=== PATIENT | male | born 1950 | race Caucasian/White ===

== ENCOUNTER → 2017-07-21 12:59 | Outpatient (CLI) | payer MEDICARE, OTHER ==
[~2017-07-21 12:59] MED LIST: BENADRYL25 MG PO; CINNAMON500 MG PO; COUMADIN1 MG PO; COUMADIN5 MG PO; FLAGYL500 MG PO; FLOMAX0.4 MG PO; FUROSEMIDE20 MG PO; GARLIC PO; KEFLEX250 MG PO; MAGNESIUM GLUC500 M1 PO; MELATONIN10 M1 PO; MULTIPLE VITAMI1 TA1 PO; OSTEO BI-FLEX1 EAC1 PO; PRAVACHOL40 MG PO; PRINIVIL20 MG PO; PROBIOTIC1 EAC1 PO; PROSCAR5 MG PO
[2017-08-23 13:35] VITALS: BMI 35.8
== END | disposition home or self-care (01) ==
LOC: D.US 12:59
DX: N18.3 Chronic kidney disease, stage 3 (moderate) (principal)

== ENCOUNTER → 2017-08-04 16:31 | Outpatient (CLI) | payer MEDICARE, OTHER ==
[2017-08-23 13:35] VITALS: BMI 35.8
== END | disposition home or self-care (01) ==
LOC: D.LAB 16:31
DX: R97.20 Elevated prostate specific antigen [PSA] (principal); N39.0 Urinary tract infection, site not specified; R31.9 Hematuria, unspecified

== ENCOUNTER → 2017-08-14 10:39 | Outpatient (CLI) | payer MEDICARE, OTHER ==
[2017-08-14 11:28] LABS: CREATININE - SERUM 1.7 mg/dL (0.6-1.3)
== END | disposition home or self-care (01) ==
LOC: D.CT 10:39
PROVIDERS: Urology
DX: R31.9 Hematuria, unspecified (principal)

== ENCOUNTER 2017-08-21 05:24 | Day surgery (SDC) | payer MEDICARE, OTHER ==
[2017-08-19 11:25] LABS: APTT 28.9 SECONDS (22.8-39.4); INR 1.23 (0.85-1.17); PROTIME 15.1 SECONDS (11.6-15.0)
[2017-08-19 11:30] LABS: ANION GAP 14.2 mmol/L (8-16); CALCIUM 8.9 mg/dL (8.5-10.1); CARBON DIOXIDE 23.4 mmol/L (21.0-32.0); CREATININE - SERUM 1.8 mg/dL (0.6-1.3); HEMOGLOBIN 12.5 g/dL (13.5-17.5); MCH 28.9 pg (26.0-34.0); MCHC 32.9 g/dL (31.0-37.0); MCV 87.8 fL (80.0-100.0); MEAN PLATELET VOLUME 11.9 fL (7.4-10.4); POTASSIUM - SERUM 4.6 mmol/L (3.5-5.1); RBC 4.33 10x6/uL (4.20-6.10); RDW 14.6 % (11.5-14.5); WBC 6.7 10x3/uL (4.8-10.8)
[~2017-08-21] VITALS: Ht 175.3 cm; Wt 113.4 kg
--- NOTE | ~2017-08-21 | OP ---
PATIENT NAME: ROSY LINDSAY MEDICAL RECORD: [id number] :48 LOCATION:[facility] ADMISSION DATE: SURGEON: JARED HOLBROOK MD DATE OF OPERATION: 08/21/2017 SURGEON: Jared Holbrook MD ANESTHESIA: MAC by Jared Teague MD DIAGNOSES: Microhematuria, elevated PSA 5.69 (08/05/2017). PROCEDURE: Cystoscopy and transrectal ultrasound and prostate biopsy. 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 Trabeculated bladder, single ureteral orifices bilaterally. No bladder tumors. On transrectal ultrasound, 60 gram prostate with no hypoechoic areas. SPECIMENS: Prostate biopsy cores. BLOOD LOSS: Minimal. CLINICAL HISTORY: This is a 67-year-old male with a chief complaint of an elevated PSA and obstructive BPH symptoms. He had a PSA of 8 and a prostate biopsy by Dr. Mondragon in 1997. The biopsy at that time was benign. Since then, the PSA has been up to 25, but that was when he had a urinary tract infection. His last PSA was 5.6 in 2014. At that time, he saw Dr. Hare. We repeated his PSA and it was 5.69 in July 2017. He comes today to have a repeat prostate biopsy. On digital rectal examination, the prostate is enlarged, about 60 grams, but smooth. He does not have a family history of prostate cancer. He was offered an MRI ultrasound fusion biopsy to be done in [place], but he preferred to have this procedure done here. He is not allergic to any medication. He was given ampicillin and sulbactam 3 grams IV telephone clerks supervisor to the OR. DESCRIPTION OF PROCEDURE: The patient was given IV sedation. He was then placed into dorsal lithotomy position and prepped and draped. A 21-Vietnamese cystoscope with 30-degree lens was used for visualization. Penile urethra was normal with no obstruction. Prostatic urethra shows trilobar hyperplasia with an obstructive prostatic urethra. The urethra was very vascular. Going into the bladder, no bladder tumors were seen. The bladder was then emptied through the cystoscope and the scope was removed. We then proceeded with the transrectal ultrasound and prostate biopsy. The ultrasound probe was placed in the rectum and prostate size measurements were obtained. We estimated the prostate size at 60 grams. Sextant biopsies were then performed with at least 3 cores from each of the sextant. Once all the samples were obtained and sent to pathology in formalin, the procedure was terminated. The patient will be going home today. I will see him in followup next week to review the pathology results with him. TRANSINT:[id number] Voice Confirmation ID: [id number] DOCUMENT ID: [id number] OPERATIVE REPORT [id number] ROSY LINDSAY, JARED Miller MD at 1356 CC: [id number] DICTATION DATE: 08/21/17830 FAMILY ASSISTANT: 08/21/17 1030 [facility] 08/21/17 [id number] [place] [address]
[2017-08-21] MEDS ORDERED: FLOMAX0.4 MG PO (06:22)
[2017-08-21] MEDS ORDERED: COUMADIN1 MG PO (06:22)
[2017-08-21] MEDS ORDERED: PRINIVIL20 MG PO (06:22)
[2017-08-21] MEDS ORDERED: FUROSEMIDE20 MG PO (06:23)
[2017-08-21] MEDS ORDERED: COUMADIN5 MG PO (06:23)
[2017-08-21] MEDS ORDERED: PRAVACHOL40 MG PO (06:23)
[2017-08-21] MEDS ORDERED: CINNAMON500 MG PO (06:24)
[2017-08-21] MEDS ORDERED: MELATONIN10 M1 PO (06:24)
[2017-08-21] MEDS ORDERED: MULTIPLE VITAMI1 TA1 PO (06:24)
[2017-08-21] MEDS ORDERED: MAGNESIUM GLUC500 M1 PO (06:24)
[2017-08-21] MEDS ORDERED: OSTEO BI-FLEX1 EAC1 PO (06:25)
[2017-08-21] MEDS ORDERED: PROBIOTIC1 EAC1 PO (06:25)
[2017-08-21 06:27] VITALS: BP 153/89; Ht 175.3 cm; Wt 113.4 kg
[2017-08-22] MEDS ORDERED: GARLIC PO (21:21)
[2017-08-22] MEDS ORDERED: BENADRYL25 MG PO (21:22)
== END 2017-08-21 09:15 | disposition home or self-care (01) ==
LOC: D.OPS 05:24 → D.PAN 07:30 → D.OPS 09:15
PROVIDERS: Anesthesiology
DX: N40.1 Benign prostatic hyperplasia with lower urinary tract symptoms (principal); N32.89 Other specified disorders of bladder; Z01.812 Encounter for preprocedural laboratory examination

== ENCOUNTER 2017-08-22 09:48 | Inpatient (IN) | payer MEDICARE, OTHER ==
[~2017-08-22] VITALS: Ht 177.8 cm; Wt 113.2 kg
--- NOTE | ~2017-08-22 | EC ---
PATIENT:ROSY LINDSAY DATE OF SERVICE: 08/22/17 SEX: M MEDICAL RECORD: [id number] DATE OF : 48 LOCATION:D[id number] AGE OF PATIENT: 67 ADMISSION DATE: 08/22/17 REFERRING PHYSICIAN: INTERPRETING PHYSICIAN: SAVITA VILLEGAS MD ECHOCARDIOGRAM REPORT ECHO CHARGES 4 ECHO COMPLETE CLINICAL DIAGNOSIS: ELEVATED BNP ECHOCARDIOGRAPHIC MEASUREMENTS (adult normal given) AC root (d.<3.7cm) 3.5 cm LV Septum d (<1.2 cm> 1.3 cm Valve Excursion 2.0 cm LV Septum (systole) 1.8 cm Left Atria (s.<4.0cm> 3.5 cm LVPW d(<1.2cm) 1.3 cm RV (d.<2.3cm) 2.8 cm LVPW (sytole) 1.9 cm LV diastole(<5.6CM) 6.2 cm MV E-F(>70mm/sec) cm LV systole 5.0 cm LVOT Diameter 2.0 cm MV exc.(>10mm) cm Est.ejection fraction (50-75%) % Pericardial Effusion N DOPPLER: LVIT cm/sec A 89.0 cm/sec E 67.0 cm/sec LA cm/sec RVSP 47.0 mmHg LVOT 132 cm/sec AOP1/2T m/s Asc. Ao 176 cm/sec RVOT 67.0 cm/sec RA cm/sec PA 130 cm/sec AV Gradient Peak 13.0 mmHg AV Mean 5.5 mmHg AV Area 2.1 cm MV Gradient Peak 4.9 mmHg MV Mean 2.1 mmHg MV Area cm COMMENTS: Linen Controller: 1 ORLANDO CHAPMANOE Chief Medical Physicist: 1 Dr. Villegas TAPE# PACS DATE OF SERVICE: 08/23/2017 Echocardiogram FINDINGS: 1. Left ventricular chamber size is upper limits of normal, left ventricular systolic function is preserved. Overall ejection fraction estimated at 55-60%. 2. Left atrium, right atrium, and right ventricular chamber sizes are within normal limits. 3. Valvular structures have normal structure and motion. ECHOCARDIOGRAM REPORT [id number] ROSY LINDSAY 4. Doppler interrogation only reveals mild mitral regurgitation, trace tricuspid regurgitation. No other valvular insufficiency or stenosis. 5. No evidence of pericardial effusion or left ventricular thrombus. TRANSINT:[id number] Voice Confirmation ID: [id number] DOCUMENT ID: [id number] SAVITA VILLEGAS MD CC: [id number] DICTATION DATE: 08/24/17944 INSURANCE LOSS ADJUSTER: 08/24/17 1233 ADM IN [place] [id number] [place] [id number]
--- NOTE | ~2017-08-22 | CN ---
PATIENT NAME:ROSY LINDSAY MEDICAL RECORD: [id number] : 48 LOCATION:[id number] ADMIT DATE: 08/22/17 ACCOUNT: [id number] CONSULTING PHYSICIAN: SAVITA BERMUDEZ MD REFERRING PHYSICIAN: PIA ROTHMAN MD DATE OF CONSULTATION: 08/24/2017 CARDIOLOGY CONSULTATION DIAGNOSES: 1. Elevated BNP. 2. Hypertension. 3. Hyperlipidemia. 4. Urinary tract infection, Gram-negative rods after urologic procedure. HISTORY OF PRESENT ILLNESS: This is a gentleman who had fever. After a urologic procedure, he has UTI and we were consulted due to an elevated BNP for possible heart failure scenario; however, echocardiogram shows normal ejection fraction at 60%. No significant valvular heart disease. REVIEW OF SYSTEMS: The patient reports easy bruising but reports no swollen glands. The patient reports no fever, no night sweats, no significant weight gain, no significant weight loss. No significant exercise tolerance. The patient reports no dry eyes, no irritation, no vision change. Patient reports no difficulty hearing and no ear pain. Patient reports no frequent nose bleeds or nose and sinus problems. Patient reports on arm pain on exertion. No shortness of breath while lying down. No history of heart murmur. Patient reports no cough, no wheezing or coughing up blood. Patient reports no abdominal pain, no vomiting. Normal appetite. No diarrhea and not vomiting blood. No nausea and no constipation. Patient reports no incontinence. No difficulty urinating. No hematuria. No increased frequency. Patient reports no muscle aches. No weakness, no arthralgias, no back pain. No swelling of the extremities. Patient reports no abnormal mole, no jaundice, no rashes. Reports no loss of consciousness. No weakness and no numbness. No seizures, dizziness, or headaches. The patient reports no depression, no sleep disturbance, feeling safe in a relationship and no alcohol abuse. Patient reports on fatigue. Reports no runny nose or sinus pressure. No itching, no hives, and no frequent sneezing. PHYSICAL EXAMINATION: GENERAL APPEARANCE: Well-nourished, well-developed, appears stated age. Level of distress, comfortable. PSYCHIATRIC: Mental status, alert, normal affect. Orientation, oriented to time, place and person. EYES: Lids and conjunctiva, noninjected. No discharge, no pallor. ENT: Lips, teeth, gums, normal dentition. Oropharynx, no cyanosis, no pallor. NECK: Carotid arteries, bilateral normal upstroke, no bruits, no thrills. JUGULAR VEINS: No jugular venous pressure or distention. CERVICAL LYMPH NODES: Nontender, nonenlarged. THYROID: Not enlarged. Nontender. No nodules. LUNGS: Respiratory effort, unlabored. CHEST: Normal curvature. No thoracic deformity. No chest wall tenderness. Percussion, resonant. Auscultation, clear. No wheezes, no rales, no rhonchi. CARDIOVASCULAR: Precordial exam, nondisplaced. No heaves or pericardial thrills. Rate and rhythm, regular. Heart sounds, normal S1, normal S2. No S3, CONSULT REPORT [id number] ROSY LINDSAY no gallop, no rub. Systolic murmur, not heard. Diastolic murmur, not heard. EXTREMITIES: No cyanosis, no edema. Peripheral pulses, full and equal in all extremities, except as noted. No bruits appreciated. ABDOMEN: Soft, nondistended. Normal aorta. No bruit. Nontender. No masses. Liver, nontender, no hepatomegaly. Spleen, nontender, no splenomegaly. MUSCULOSKELETAL: No joint tenderness. No joint swelling. No erythema. NEUROLOGICAL: Normal gait, normal strength, normal tone. SKIN: Warm and dry. OVERALL IMPRESSION: No evidence of heart failure, normal echocardiogram, no other cardiac workup or treatment is necessary. TRANSINT:[id number] Voice Confirmation ID: [id number] DOCUMENT ID: [id number] SAVITA BERMUDEZ MD CC: [id number] DICTATION DATE: 08/24/1748 RADIATION MONITOR: 08/24/17 1227 ADM IN [id number] [place] [address]
[~2017-08-22 09:48] MED LIST changes: -BENADRYL25 MG PO; -FLAGYL500 MG PO; -GARLIC PO; -KEFLEX250 MG PO; -PROSCAR5 MG PO
[2017-08-22 10:28] LABS: BASOPHILS 0.1 % (0-2); EOSINOPHILS 0 % (0-7); HEMATOCRIT 38.5 % (42.0-54.0); HEMOGLOBIN 13.3 g/dL (13.5-17.5); IMMATURE GRANULOCYTES 0.2 % (0-5); LYMPHOCYTES 2.3 % (15-50); MCH 29.1 pg (26.0-34.0); MCHC 34.5 g/dL (31.0-37.0); MCV 84.2 fL (80.0-100.0); MEAN PLATELET VOLUME 11.5 fL (7.4-10.4); MONOCYTES 3.5 % (2-11); NEUTROPHILS 93.9 % (40-80); RBC 4.57 10x6/uL (4.20-6.10); RDW 14.6 % (11.5-14.5); WBC 16.5 10x3/uL (4.8-10.8)
[2017-08-22 10:33] LABS: PLATELET COUNT 111 10x3/uL (130-400)
[2017-08-22 10:35] LABS: ANION GAP 16.9 mmol/L (8-16); CARBON DIOXIDE 20.9 mmol/L (21.0-32.0); CREATININE - SERUM 2.7 mg/dL (0.6-1.3); POTASSIUM - SERUM 3.8 mmol/L (3.5-5.1)
[2017-08-22 13:25] LABS: APPEARANCE SLT CLOUDY (CLEAR); COLOR YELLOW (YELLOW); GLUCOSE 50 mg/dL (NEGATIVE); NITRITE NEGATIVE (NEGATIVE); PROTEIN NEGATIVE (NEGATIVE); SPECIFIC GRAVITY 1.015 (1.005-1.020)
[2017-08-22 13:26] LABS: BACTERIA FEW /hpf (NONE SEEN); BILIRUBIN NEGATIVE (NEGATIVE); EPITHELIAL CELLS 0-5 /hpf (0-5); KETONE SMALL mg/dL (NEGATIVE); MUCUS <1+ /lpf (NONE SEEN); RED CELLS - URINE 25-50 /hpf (0-5); SPERMATOZOA PRESENT /hpf (NONE SEEN); UROBILINOGEN NORMAL (NORMAL); WHITE CELLS - URINE 0-5 /hpf (0-5)
[2017-08-22 14:04] LABS: CREATINE KINASE 641 UL (21-232); MAGNESIUM - SERUM 1.7 mg/dL (1.8-2.4)
[2017-08-22 14:08] LABS: TROPONIN-I 0.232 ng/mL (0.000-0.060)
[2017-08-22 15:15] LABS: INR 1.43 (0.85-1.17); PROTIME 16.9 SECONDS (11.6-15.0)
[2017-08-22 16:28] LABS: CKMB 4.6 U/L (0.0-3.6)
[2017-08-22] MEDS ORDERED: GARLIC PO (21:21)
[2017-08-22] MEDS ORDERED: BENADRYL25 MG PO (21:22)
[2017-08-22 22:06] VITALS: BP 134/77
[2017-08-22 22:13] VITALS: BP 134/77; BMI 35.9
[2017-08-23 04:36] VITALS: BP 134/77
[2017-08-23 07:03] VITALS: BP 149/79
[2017-08-23 11:10] VITALS: BP 180/93
[2017-08-23 13:35] VITALS: Ht 177.8 cm; Wt 113.2 kg
[2017-08-23 15:07] VITALS: BP 163/88
[2017-08-23 15:19] LABS: BASOPHILS 0.1 % (0-2); EOSINOPHILS 0.3 % (0-7); HEMOGLOBIN 12.4 g/dL (13.5-17.5); IMMATURE GRANULOCYTES 0.3 % (0-5); MCH 28.4 pg (26.0-34.0); MCHC 33.5 g/dL (31.0-37.0); MCV 84.9 fL (80.0-100.0); MEAN PLATELET VOLUME 11.8 fL (7.4-10.4); MONOCYTES 7.5 % (2-11); PLATELET COUNT 98 10x3/uL (130-400); RBC 4.36 10x6/uL (4.20-6.10); RDW 15.1 % (11.5-14.5); WBC 15.2 10x3/uL (4.8-10.8)
[2017-08-23 15:25] LABS: ALBUMIN 3.1 g/dL (3.4-5.0); ANION GAP 14.6 mmol/L (8-16); BILIRUBIN - TOTAL 1.04 mg/dL (0.2-1.3); CALCIUM 8.5 mg/dL (8.5-10.1); CARBON DIOXIDE 22.4 mmol/L (21.0-32.0); CREATININE - SERUM 2.2 mg/dL (0.6-1.3); PROTEIN - SERUM 6.8 g/dL (6.4-8.2)
[2017-08-23 15:57] LABS: NEUTROPHILS 88.8 % (40-80); PLATELET ESTIMATE DECREASED
[2017-08-23 20:30] VITALS: BP 151/78
[2017-08-24 00:30] VITALS: BP 180/93
[2017-08-24 04:30] VITALS: BP 159/82
[2017-08-24 05:32] LABS: BASOPHILS 0.2 % (0-2); EOSINOPHILS 0.8 % (0-7); HEMATOCRIT 35.6 % (42.0-54.0); HEMOGLOBIN 11.6 g/dL (13.5-17.5); IMMATURE GRANULOCYTES 0.5 % (0-5); LYMPHOCYTES 3.9 % (15-50); MCHC 32.6 g/dL (31.0-37.0); MEAN PLATELET VOLUME 12.4 fL (7.4-10.4); MONOCYTES 9.1 % (2-11); NEUTROPHILS 85.5 % (40-80); PLATELET COUNT 83 10x3/uL (130-400); RBC 4.14 10x6/uL (4.20-6.10); RDW 15.1 % (11.5-14.5); WBC 12.7 10x3/uL (4.8-10.8)
[2017-08-24 05:55] LABS: ANION GAP 15.4 mmol/L (8-16); BILIRUBIN - TOTAL 0.9 mg/dL (0.2-1.3); CALCIUM 7.7 mg/dL (8.5-10.1); CARBON DIOXIDE 20.4 mmol/L (21.0-32.0); CREATININE - SERUM 1.9 mg/dL (0.6-1.3); POTASSIUM - SERUM 3.8 mmol/L (3.5-5.1)
[2017-08-24 09:23] VITALS: BP 167/92
[2017-08-24 11:43] VITALS: BP 158/80
[2017-08-24 16:00] VITALS: BP 167/97
[2017-08-24 20:00] VITALS: BP 136/76
[2017-08-25] VITALS: BP 140/81
[2017-08-25 04:00] VITALS: BP 133/80
[2017-08-25 05:58] LABS: BASOPHILS 0.2 % (0-2); EOSINOPHILS 1.6 % (0-7); HEMATOCRIT 32.6 % (42.0-54.0); HEMOGLOBIN 10.6 g/dL (13.5-17.5); IMMATURE GRANULOCYTES 0.2 % (0-5); LYMPHOCYTES 5.3 % (15-50); MCH 28.3 pg (26.0-34.0); MCHC 32.5 g/dL (31.0-37.0); MCV 87.2 fL (80.0-100.0); MEAN PLATELET VOLUME 13.1 fL (7.4-10.4); MONOCYTES 11.2 % (2-11); NEUTROPHILS 81.5 % (40-80); PLATELET COUNT 88 10x3/uL (130-400); RBC 3.74 10x6/uL (4.20-6.10); RDW 15.2 % (11.5-14.5); WBC 8.4 10x3/uL (4.8-10.8)
[2017-08-25 06:24] LABS: ALBUMIN 2.8 g/dL (3.4-5.0); ANION GAP 13.1 mmol/L (8-16); BILIRUBIN - TOTAL 0.6 mg/dL (0.2-1.3); CALCIUM 8.1 mg/dL (8.5-10.1); CARBON DIOXIDE 21.6 mmol/L (21.0-32.0); CREATININE - SERUM 1.7 mg/dL (0.6-1.3); POTASSIUM - SERUM 3.7 mmol/L (3.5-5.1); PROTEIN - SERUM 6.5 g/dL (6.4-8.2)
[2017-08-25 09:14] VITALS: BP 156/82
[2017-08-25 12:55] VITALS: BP 141/77
[2017-08-25 16:59] VITALS: BP 162/94
[2017-08-25 22:08] VITALS: BP 138/71
[2017-08-26 04:55] VITALS: BP 176/84
[2017-08-26 05:51] LABS: BASOPHILS 0.4 % (0-2); EOSINOPHILS 3.9 % (0-7); HEMATOCRIT 33.2 % (42.0-54.0); HEMOGLOBIN 10.9 g/dL (13.5-17.5); IMMATURE GRANULOCYTES 0.6 % (0-5); LYMPHOCYTES 9.6 % (15-50); MCH 28.2 pg (26.0-34.0); MCHC 32.8 g/dL (31.0-37.0); MCV 85.8 fL (80.0-100.0); MEAN PLATELET VOLUME 12.8 fL (7.4-10.4); MONOCYTES 13.5 % (2-11); PLATELET COUNT 99 10x3/uL (130-400); RBC 3.87 10x6/uL (4.20-6.10); RDW 15.4 % (11.5-14.5); WBC 8.4 10x3/uL (4.8-10.8)
[2017-08-26 06:20] LABS: ALBUMIN 2.8 g/dL (3.4-5.0); BILIRUBIN - TOTAL 0.52 mg/dL (0.2-1.3); CALCIUM 8.4 mg/dL (8.5-10.1); CREATININE - SERUM 1.6 mg/dL (0.6-1.3); PROTEIN - SERUM 6.4 g/dL (6.4-8.2)
[2017-08-26 08:34] VITALS: BP 167/92
[2017-08-26 12:29] VITALS: BP 178/85
[2017-08-26 15:52] VITALS: BP 170/82
[2017-08-26] MEDS ORDERED: PROSCAR5 MG PO (16:54)
[2017-08-26] MEDS ORDERED: KEFLEX250 MG PO (16:56)
[2017-08-26] MEDS ORDERED: FLAGYL500 MG PO (16:56)
[2017-08-27 01:48] VITALS: BP 192/97
[2017-08-27 05:29] VITALS: BP 184/86
[2017-08-27 05:47] LABS: ANION GAP 14.2 mmol/L (8-16); BILIRUBIN - TOTAL 0.6 mg/dL (0.2-1.3); CALCIUM 9.1 mg/dL (8.5-10.1); CARBON DIOXIDE 21.8 mmol/L (21.0-32.0); CREATININE - SERUM 1.5 mg/dL (0.6-1.3); PROTEIN - SERUM 7.1 g/dL (6.4-8.2)
[2017-08-27 06:29] LABS: BASOPHILS 0.4 % (0-2); EOSINOPHILS 4.4 % (0-7); HEMOGLOBIN 11.7 g/dL (13.5-17.5); IMMATURE GRANULOCYTES 1.2 % (0-5); LYMPHOCYTES 11.7 % (15-50); MCH 28.5 pg (26.0-34.0); MCHC 33.4 g/dL (31.0-37.0); MCV 85.2 fL (80.0-100.0); MEAN PLATELET VOLUME 11.8 fL (7.4-10.4); MONOCYTES 10.9 % (2-11); NEUTROPHILS 71.4 % (40-80); RBC 4.11 10x6/uL (4.20-6.10); RDW 15.3 % (11.5-14.5); WBC 10.2 10x3/uL (4.8-10.8)
[2017-08-27 06:34] LABS: PLATELET COUNT 122 10x3/uL (130-400)
[2017-08-27 08:34] VITALS: BP 179/106
== END 2017-08-27 10:05 | disposition home or self-care (01) | DRG 372 ==
LOC: D.ER 09:48 → D.MS 16:36 → D.SDCHOLD 16:36 → D.MS 20:44
PROVIDERS: Emergency Medicine; Family Medicine; Nurse Practitioner Family
PROC: 0T9B70Z Drainage of Bladder with Drainage Device, Via Natural or Artificial Opening (ICD-10-PCS; principal; 2017-08-22)
DX: A04.72 Enterocolitis due to Clostridium difficile, not specified as recurrent (principal); N39.0 Urinary tract infection, site not specified; I10 Essential (primary) hypertension; E78.5 Hyperlipidemia, unspecified; R79.89 Other specified abnormal findings of blood chemistry; E86.0 Dehydration; R33.9 Retention of urine, unspecified

== ENCOUNTER 2017-09-26 12:20 | Outpatient (CLI) | payer MEDICARE, OTHER ==
[2017-08-23 13:35] VITALS: BMI 35.8
[~2017-09-26 12:20] MED LIST changes: +BENADRYL25 MG PO; +FLAGYL500 MG PO; +GARLIC PO; +KEFLEX250 MG PO; +PROSCAR5 MG PO
== END 2017-09-26 13:35 | disposition home or self-care (01) ==
LOC: D.OPS 12:20
DX: N39.0 Urinary tract infection, site not specified (principal); Z01.812 Encounter for preprocedural laboratory examination

== ENCOUNTER 2017-09-26 15:17 | Emergency (ER) | payer MEDICARE, OTHER ==
[2017-08-23 13:35] VITALS: BMI 35.8
== END 2017-09-26 17:32 | disposition home or self-care (01) ==
LOC: D.ER 15:17
DX: T82.838A Hemorrhage due to vascular prosthetic devices, implants and grafts, initial encounter (principal); I10 Essential (primary) hypertension